=== PATIENT | female | born 1995 | race Caucasian/White ===

== ENCOUNTER 2020-07-29 19:08 | Emergency (ER) | payer BC ==
[2020-07-29] MEDS ORDERED: Sodium Chloride 0.9% 10 ML Syringe FLUSH PRN (19:11)
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
[2020-07-29 19:52] LABS: ANION GAP 14.2 mmol/L (5-15); CHLORIDE,CL 103 mmol/L (98-107); SODIUM,NA 139 mmol/L (136-145)
[2020-07-29 20:04] LABS: BARBITURATE SCREEN,URINE NEGATIVE (NEGATIVE); BENZODIAZEPINES SCREEN,URINE NEGATIVE (NEGATIVE); TCA SCREEN,URINE NEGATIVE (NEGATIVE); THC SCREEN,URINE 50 NG/ML NEGATIVE (NEGATIVE)
--- NOTE | 2020-07-29 20:06 | CT ---
[id number] CT/CT Head WO IV EXAM: NONCONTRAST HEAD CT INDICATION: FIRST ONSET OF SEIZURE COMPARISON: March 10, 2011. DISCUSSION: Artifact from earrings somewhat limits this exam. The ventricles and sulci are normal in size and configuration. The mcqueen and white matter are normal in attenuation. No mass effect or midline shift. No acute hemorrhage or extra-axial fluid collection. No acute territorial infarct is identified. A limited look at the orbits and paranasal sinuses is unremarkable. IMPRESSION: 1. Negative exam. Yohannes Rosales MD 07/29/202004 Thank you for allowing us to participate in the care of your patient.
== END 2020-07-29 20:30 | disposition home or self-care (01) ==
LOC: KA.ED 19:08
DX: R56.9 Unspecified convulsions (principal)
CPT/HCPCS: 70450; 80053; 80305-QW; 81001; 81025; 83735; 85025; 87086; 93005; 99284; 99285-25

== ENCOUNTER 2021-03-09 11:20 | Emergency (ER) | payer OTHER, BC ==
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
== END 2021-03-09 12:25 | disposition home or self-care (01) ==
LOC: KA.ED 11:20
DX: S90.811A Abrasion, right foot, initial encounter (principal); S30.811A Abrasion of abdominal wall, initial encounter; R56.9 Unspecified convulsions; Z79.899 Other long term (current) drug therapy; V89.2XXA Person injured in unspecified motor-vehicle accident, traffic, initial encounter
CPT/HCPCS: 71045; 72170; 81001; 99284; 99284-25; Q3014